=== PATIENT | male | born 1985 | race Caucasian/White ===

== ENCOUNTER 2021-06-24 18:03 | Inpatient (IN) | payer OTHER ==
[~2021-06-24] VITALS: Ht 185.4 cm; Wt 98.0 kg
[2021-06-24 19:08] LABS: BASOPHILS % 0.8 % (0.0-2.0); EOSINOPHILS % 7.2 % (0.0-5.0); HEMATOCRIT. 44.5 % (42.0-52.0); HEMOGLOBIN. 14.8 g/dL (14.0-18.0); LYMPHOCYTES % 26.4 % (20.0-50.0); MEAN CORPUSCULAR HEMOGLOBIN 28.4 pg (28.0-32.0); MEAN CORPUSCULAR VOLUME 85.5 fL (80.0-94.0); MEAN PLATELET VOLUME 8.6 fl (7.4-10.4); MONOCYTES % 10.4 % (2.0-8.0); NEUTROPHILS % 55.2 % (40.0-76.0); PLATELET 228 x1000/uL (130-400); RED CELL DISTRIBUTION WIDTH 13.5 % (11.6-14.6)
[2021-06-24 19:14] LABS: CHLORIDE 107 mEq/L (98-107)
[2021-06-24] MEDS ORDERED: METOCLOPRAMIDE HCL 10MG/2ML VIAL IV ONE (19:15)
[2021-06-24 19:20] LABS: CLARITY URINE CLEAR (CLEAR); COLOR URINE YELLOW (YELLOW); KETONES URINE TRACE (NEGATIVE); LEUKOCYTE ESTERASE URINE NEGATIVE (NEGATIVE); NITRITE URINE NEGATIVE (NEGATIVE); OCCULT BLOOD URINE NEGATIVE (NEGATIVE); PH URINE 5.5 (4.5-8.0); PROTEIN URINE NEGATIVE (NEGATIVE); SPECIFIC GRAVITY URINE 1.037 (1.005-1.030)
[2021-06-24 19:23] LABS: ETHANOL BLOOD < 10 mg/dL
[2021-06-24] MEDS ORDERED: IOHEXOL-350 100 ML BOTTLE ONE (19:45)
[2021-06-24 19:48] LABS: *AMPHETAMINES SCREEN URINE NEGATIVE (NEGATIVE); *BARBITURATES SCREEN URINE NEGATIVE (NEGATIVE); *BENZODIAZEPINES SCREEN URINE NEGATIVE (NEGATIVE); *COCAINE SCREEN URINE NEGATIVE (NEGATIVE); CANNABINOID URINE SCREEN NEGATIVE (NEGATIVE); METHADONE URINE SCREEN NEGATIVE (NEGATIVE); OPIATES URINE SCREEN NEGATIVE (NEGATIVE); PHENCYCLIDINE URINE SCREEN NEGATIVE (NEGATIVE)
[2021-06-24] MEDS: ENOXAPARIN 30MG/0.3ML SYR SUBCUT SCH (22:45)
[2021-06-24] MEDS ORDERED: ACETAMINOPHEN 325MG TABLET PO PRN ×2 (22:45)
[2021-06-24] MEDS ORDERED: ONDANSETRON HCL 4MG/2ML INJ IV PRN (22:45)
[2021-06-24] MEDS ORDERED: MAGNESIUM/ALUMINUM HYDROXIDE/SIMETHICONE 30ML UDC PO PRN (22:45)
[2021-06-24] MEDS ORDERED: CLONIDINE 0.1MG TABLET PO PRN (22:45)
[2021-06-24] MEDS ORDERED: IPRATROPIUM/ALBUTEROL 0.5-3(2.5)MG/3ML NEB NEB PRN (22:45)
[2021-06-24] MEDS ORDERED: GUAIFENESIN 200MG/10ML SUGAR FREE UDC PO PRN (22:45)
[2021-06-24] MEDS ORDERED: ZOLPIDEM TARTRATE 5MG TABLET PO PRN (22:45)
[2021-06-24] MEDS ORDERED: NITROGLYCERIN 0.4MG TABLET SL SL PRN (22:45)
[2021-06-24] MEDS ORDERED: NA PHOS,M-B/NA PHOS,DI-BA ENEMA 118ML PR PRN (22:45)
[2021-06-24] MEDS ORDERED: DOCUSATE SODIUM 100MG CAPSULE PO PRN (22:45)
[2021-06-24 23:32] LABS: T4 FREE 0.93 ng/dL (0.76-1.46)
[2021-06-24 23:49] LABS: FOLIC ACID (FOLATE) SERUM 9.8 ng/mL (>5.38)
[2021-06-25 01:50] VITALS: BP 117/68
[2021-06-25 04:00] VITALS: BP 118/63
[2021-06-25] MEDS: KETOROLAC 15MG/ML VIAL IV PRN ×2 (07:21→13:45)
[2021-06-25 08:00] VITALS: BP 121/74
[2021-06-25] MEDS ORDERED: FAMOTIDINE 20MG TABLET PO SCH (09:00)
[2021-06-25] MEDS ORDERED: ASPIRIN 325MG EC TABLET PO SCH (09:00)
[2021-06-25] MEDS: ENOXAPARIN 30MG/0.3ML SYR SUBCUT SCH (09:21)
[2021-06-25 10:32] LABS: BASOPHILS % 0.7 % (0.0-2.0); EOSINOPHILS % 7.1 % (0.0-5.0); HEMATOCRIT. 44.4 % (42.0-52.0); HEMOGLOBIN. 14.9 g/dL (14.0-18.0); LYMPHOCYTES % 23.3 % (20.0-50.0); MEAN CORPUSCULAR HEMOGLOBIN 28.1 pg (28.0-32.0); MEAN CORPUSCULAR VOLUME 83.6 fL (80.0-94.0); MONOCYTES % 8.9 % (2.0-8.0); PLATELET 209 x1000/uL (130-400); RED BLOOD CELL COUNT 5.31 mill/uL (4.7-6.1); RED CELL DISTRIBUTION WIDTH 13.9 % (11.6-14.6)
[2021-06-25 12:00] VITALS: BP 120/70
[2021-06-25 12:54] LABS: CREATINE KINASE 97 IU/L (39-308)
[2021-06-25 12:55] LABS: CREATINE KINASE MB FRACTION < 1.0 ng/mL (0.5-3.6)
[2021-06-25 13:52] LABS: CHLORIDE 109 mEq/L (98-107)
[2021-06-25 14:00] LABS: PHOSPHORUS 2.9 mg/dL (2.5-4.9)
[2021-06-25 15:49] VITALS: BP 119/72
[2021-06-25 18:18] VITALS: BP 112/70
[2021-06-25 18:45] LABS: CREATINE KINASE 84 IU/L (39-308); CREATINE KINASE MB FRACTION < 1.0 ng/mL (0.5-3.6)
== END 2021-06-25 19:07 | disposition home or self-care (01) | DRG 102 ==
LOC: ER 18:03 → MICUSO 20:42 → EDBEDREQSVC 20:55 → EDBEDREQ 20:55 → EDBEDREQTM 20:55 → 6WST 06-25 01:50
PROVIDERS: ADMIT Internal Medicine; ATTEND Internal Medicine
DX: G43.909 Migraine, unspecified, not intractable, without status migrainosus (principal); N17.0 Acute kidney failure with tubular necrosis; E87.1 Hypo-osmolality and hyponatremia; E87.5 Hyperkalemia; E83.51 Hypocalcemia; E78.00 Pure hypercholesterolemia, unspecified; E78.5 Hyperlipidemia, unspecified; K21.9 Gastro-esophageal reflux disease without esophagitis; Z88.0 Allergy status to penicillin
CPT/HCPCS: 36415; 70496; 70498; 70544; 70551; 71045; 80053; 80061; 80305; 80320; 81003; 82550; 82553; 82607; 82746; 83036; 83540; 83550; 83735; 84100; 84439; 84443; 84484; 85025; 93005; 93306; 93970; 99285; J1650; J1885; J2405; J2765; Q9967; G0480